=== PATIENT | female | born 1975 | race Caucasian/White ===

== ENCOUNTER 2019-08-04 11:05 | Emergency (ER) | payer OTHER, SELFPAY ==
[2019-08-04 11:08] VITALS: BP 142/46; PULSE 66; RESP 13; TEMP 36.3; O2SAT 98; BMI 22.8
--- NOTE | 2019-08-04 11:25 | ED_ITS ---
HPI - Wound/Laceration <EFRAÍN Guzman - Last Filed: 08/04/19 14:55> General Chief Complaint: Wound/Laceration Stated Complaint: Cut her Right ring finger Time Seen by Provider: 08/04/19 11:11 Source: patient Mode of arrival: Ambulatory Limitations: no limitations History of Present Illness HPI narrative: The patient is a 44-year-old female nonsmoker presents with a chief complaint of laceration to her right ring finger. She accidentally cut herself on her knife on the palmar surface. She states that she has full range of motion of her right ring finger. She states that she has had lidocaine and numbing medication before with no issues. She states that it happened just prior to arrival she does not know when her last was. She is not worried about chip fracture or retained foreign body. She has not washed out prior to arrival at the emergency department. Related Data Allergies Allergy/AdvReac Type Severity Reaction Status Date / Time No Known Drug Allergies Allergy Verified 08/04/19 11:10 Review of Systems <EFRAÍN Guzman - Last Filed: 08/04/19 14:55> Review of Systems Narrative: GENERAL: Denies chills, fatigue, malaise, fever, sweats. HEENT: Denies sinus pain, ear pain, sore throat, difficulty swallowing, dizziness. RESPIRATORY: Denies dyspnea, cough, wheezing, hemoptysis, sputum. CARDIOVASCULAR: Denies chest pain, palpitations, orthopnea, edema, GASTROINTESTINAL: Denies nausea, vomiting, abdominal pain, diarrhea, constipation, melena. : Denies dysuria, frequency, incontinence, hematuria, urinary retention. MUSCULOSKELETAL: denies weakness, joint pain, or bony pain SKIN: See HPI NEUROLOGIC: Denies weakness, headache, numbness, change in speech, confusion, seizures, incoordination. PSYCHIATRIC: No concerning psychosocial issues. 12 point review of systems is negative except for those stated above Patient History <EFRAÍN Guzman - Last Filed: 08/04/19 14:55> Social History Smoking Status: Unknown if ever smoked Smoking Status: Unknown if ever smoked alcohol intake frequency: holidays/special occasions only Substance Use Type: does not use Exam <VITOR GuzmanBC - Last Filed: 08/04/19 14:55> Narrative Exam Narrative: GENERAL: This is a well-nourished, well-developed patient, no acute distress HEAD: Atraumatic. Normocephalic. No temporal or scalp tenderness. EYES: Pupils equal round and reactive. Extraocular motions intact. No scleral icterus. No injection or drainage. ENT: Nose without bleeding, purulent drainage or septal hematoma. Throat without erythema, tonsillar hypertrophy or exudate. Uvula midline. Airway patent. NECK: Trachea midline. No JVD or lymphadenopathy. Supple, nontender, no meningeal signs. CARDIOVASCULAR: Regular rate and rhyth, RESPIRATORY: No cough. No increased respiratory effort. No accessory muscle use. EXTREMITIES: Full range of motion noted right 4th digit positive right radial pulse. Capillary refill less than 2 seconds right 4th digit BACK: Nontender without deformity or crepitance. No flank tenderness. NEURO: AOx3. SKIN: A 2 cm palmar side laceration on right ring finger, slightly V shaped flap laceration middle phalanx Initial Vital Signs Initial Vital Signs: Vital Signs Temperature 97.4 F L 08/04/19 11:08 Pulse Rate 66 08/04/19 11:08 Respiratory Rate 13 08/04/19 11:08 Blood Pressure 142/46 H 08/04/19 11:08 Pulse Oximetry 98 08/04/19 11:08 <Alfred Maldonado DO - Last Filed: 08/04/19 15:17> Initial Vital Signs Initial Vital Signs: Vital Signs Temperature 97.4 F L 08/04/19 11:08 Pulse Rate 66 08/04/19 11:08 Respiratory Rate 13 08/04/19 11:08 Blood Pressure 142/46 H 08/04/19 11:08 Pulse Oximetry 98 08/04/19 11:08 Procedures <EFRAÍN Guzman - Last Filed: 08/04/19 14:55> Laceration Repair Laceration 1: Site: hand Side (If applicable): right (4th finger) Size (cm): 2 Description: flap Depth: simple, single layer Amount of anesthesia used (mL): 4 Pre-repair: wound explored, irrigated extensively and deep structures intact Skin layer closed with: nylon Size (cm): 5-0 Number of sutures: 4 Technique: simple, interrupted Nerve Block Nerve Block 1: Local Anesthetic: lidocaine 1% and with bicarb Amount of anesthesia used (mL): 4 Side: right Nerve Blocks: digital (4th) Procedure Successful: Yes Patient Tolerated Procedure: Well Complications: none Course <EFRAÍN Guzman - Last Filed: 08/04/19 14:55> Orders Ordered: Discontinued Medications Diphtheria/Tetanus/Acell Pertussis (Adacel) 0.5 ml IM .ONCE ONE Stop: 08/04/19 11:24 Last Admin: 08/04/19 11:29 Dose: 0.5 ml Documented by: SCANAPO Lidocaine/Sodium Bicarbonate (Buffered Lidocaine 10 Ml Syr) 10 ml INJ NOW ONE Stop: 08/04/19 11:24 Last Admin: 08/04/19 11:32 Dose: 10 ml Documented by: SCANAPO Vital Signs Vital signs: Vital Signs - 8 hr 08/04/19 11:08 08/04/19 12:16 Temperature 97.4 F L Pulse Rate 66 56 L Respiratory Rate 13 Blood Pressure 142/46 H 106/71 Pulse Oximetry 98 97 <Alfred Maldonado DO - Last Filed: 08/04/19 15:17> Orders Ordered: Discontinued Medications Diphtheria/Tetanus/Acell Pertussis (Adacel) 0.5 ml IM .ONCE ONE Stop: 08/04/19 11:24 Last Admin: 08/04/19 11:29 Dose: 0.5 ml Documented by: SCANAPO Lidocaine/Sodium Bicarbonate (Buffered Lidocaine 10 Ml Syr) 10 ml INJ NOW ONE Stop: 08/04/19 11:24 Last Admin: 08/04/19 11:32 Dose: 10 ml Documented by: SCANAPO Vital Signs Vital signs: Vital Signs - 8 hr 08/04/19 11:08 08/04/19 12:16 Temperature 97.4 F L Pulse Rate 66 56 L Respiratory Rate 13 Blood Pressure 142/46 H 106/71 Pulse Oximetry 98 97 MDM - Wound/Laceration <EFRAÍN Guzman - Last Filed: 08/04/19 14:55> MDM Narrative Medical decision making narrative: The patient is a 44-year-old female presents with a chief complaint of a laceration to her right ring finger. Her tetanus is updated accordingly as she does not know when her last tetanus was. Patient declines x-ray for chip fracture and retained foreign body. She is able to flex and extend her right ring finger against resistance, which is reassuring for tendon integrity. She is neurovascularly intact throughout her stay in the emergency department. Patient was sutured as per procedural note which she tolerated well. Discussed at length monitoring for signs and symptoms of infection, coming back to the emergency department for any acute concerns such as decreased circulation to the finger, not putting finger in dirty water. Encouraged follow-up for suture removal in 7 days. Patient has no questions or concerns upon discharge and states understanding of return precautions as well as follow-up care Discharge Plan Departure Patient Disposition: Home Clinical Impression: Laceration Discharge Date/Time: 08/04/19 12:16 Instructions: How to Care for a Laceration After Repair, DI for Laceration Repair, DI for Minor Laceration Activity Restrictions/Additional Instructions: Thank you for trusting us with your care today. Today we updated your tetanus and placed 4 sutures in your finger. Please monitor your wound for signs and symptoms of infection such as redness swelling and pus. Follow up if these occur. Please come back to the emergency department for any acute concerns such as decreased circulation to your finger tip. Please follow up for suture removal in approximately 7 days. Please do not submerge your finger into dirty water such as pools, hot tubs and dishwater. This can increase your chance of infection. Referrals: Erica Gonzalez PA-C [Primary Care Provider] - <Alfred Maldonado DO - Last Filed: 08/04/19 15:17> [facility]: Dr Maldonado Co-Sign Statement: I was available for consultation during this patient's emergency department visit. This chart is signed by myself for administrative purposes only. I did not have direct contact with this patient during this visit. They were seen independently by the APC.
[2019-08-04] MEDS: TET,DIPH,PERTUSS(ACELL),VAC/PF 0.5 ML SYRINGE IM (11:29)
[2019-08-04] MEDS: LIDO 1%/SOD BICARB 8.4% (10ML) 10 ML SYRINGE INJ (11:32)
[2019-08-04 12:16] VITALS: BP 106/71; PULSE 56; O2SAT 97
== END 2019-08-04 12:16 | disposition home or self-care (01) ==
PROVIDERS: Emergency Provider Nurse Practitioner Family; PCP Physician Assistant
DX: S61.214A Laceration without foreign body of right ring finger without damage to nail, initial encounter (principal); W26.0XXA Contact with knife, initial encounter; Z23 Encounter for immunization
CPT/HCPCS: 12001; 64450; 90471; 99284; 90715

== ENCOUNTER 2024-02-05 13:15 | Emergency (ER) | payer OTHER, SELFPAY ==
[2024-02-05] VITALS (9 sets, daily range): BP systolic 94–130; BP diastolic 52–83; PULSE 62–72; RESP 16–18; TEMP 36.7–37.4; O2SAT 94–99; BMI 22.1
--- NOTE | 2024-02-05 13:59 | DI.RAD.S_ITS ---
PROCEDURE: XR SACRUM COCCYX MIN 2V INDICATIONS: pain TECHNIQUE: 3 views of the sacrum and coccyx acquired. COMPARISON: None. FINDINGS: Bones: No fractures or dislocations. No suspicious bony lesions. Soft tissues: Visualized bowel gas pattern is normal. No suspicious soft tissue densities. IMPRESSION: No acute osseous abnormality. Dictated by: Jordan Benitez M.D. on 02/05/2024 at 14:24 Approved by: Jordan Benitez M.D. on 02/05/2024 at 14:25
--- NOTE | 2024-02-05 13:59 | DI.RAD.S_ITS ---
PROCEDURE: XR PELVIS 1-2V INDICATIONS: pain TECHNIQUE: 1 view(s) of the pelvis acquired. COMPARISON: None. FINDINGS: Bones: No fractures or dislocations. No suspicious bony lesions. Mild degenerative changes are noted at the bilateral superior acetabular rims. Soft tissues: Visualized bowel gas pattern is normal. No suspicious soft tissue calcifications. IMPRESSION: No acute bony abnormality. Dictated by: Jordan Benitez M.D. on 02/05/2024 at 14:23 Approved by: Jordan Benitez M.D. on 02/05/2024 at 14:24
--- NOTE | 2024-02-05 14:06 | ED.FALL ---
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 He has not complaining of extremity pain abdominal or back pain. She was able to get up and walk back into the school and was able to get to the emergency department in a private vehicle. She describes decreased sensation over the surface of the tailbone and a deep discomfort focusing around her tailbone. There was no bleeding, obvious contusion or bruising at this time Related Data Allergies Allergy/AdvReac Type Severity Reaction Status Date / Time No Known Drug Allergies Allergy Verified 02/05/24 13:28 Review of Systems Review of Systems Narrative: Pertinent positive and negative findings as per HPI Patient History Social History Smoking Status: Unknown if ever smoked Smoking Status: Unknown if ever smoked alcohol intake frequency: holidays/special occasions only Substance Use Type: does not use Exam Initial Vital Signs Initial Vital Signs: Vital Signs Temperature 98.1 F 02/05/24 13:25 Pulse Rate 72 02/05/24 13:25 Respiratory Rate 16 02/05/24 13:25 Blood Pressure 130/83 02/05/24 13:25 Pulse Oximetry 99 02/05/24 13:25 Oxygen Delivery Method Room Air 02/05/24 13:25 General: Healthy appearing, obviously hurting but Able to give a complete and coherent history. Well-nourished well-developed HEENT: Moist mucous membranes, normal sclera with reactive pupils, Spine: No tenderness along the cervical thoracic or lumbar midline spine with palpation. No tenderness around pelvic ring or over ischial tuberosities. Significant tenderness directly over the coccyx Respiratory: Lungs are clear to auscultation, no wheezing no rales no rhonchi. Full and symmetrical air movement Cardiac: Regular rate and rhythm no murmurs no bruits Abdomen: Soft, nontender, good bowel tones, no flank pain Skin: Warm and dry, no rashes Neurologic: Grossly neurologically intact with no obvious asymmetries or abnormalities Extremities: No trauma, well perfused Psych: Cooperative, appropriate insight and affect Course Orders Ordered: ED Orders 02/05/24 13:59 XR pelvis 1-2V Stat XR sacrum coccyx min 2V Stat Discontinued Medications Ibuprofen (Ibuprofen 400 Mg Tablet) 400 mg PO NOW ONE Stop: 02/05/24 13:59 Last Admin: 02/05/24 14:17 Dose: 400 mg Documented By: TEODORA Oxycodone/Acetaminophen (Oxycodone/Acetaminophen 5/325 Tablet) 1 tab PO NOW ONE Stop: 02/05/24 13:59 Last Admin: 02/05/24 14:17 Dose: 1 tab Documented By: RB Vital Signs Vital signs: Vital Signs - 8 hr 02/05/24 13:25 02/05/24 13:28 02/05/24 13:30 Temperature 98.1 F Pulse Rate 72 66 Respiratory Rate 16 Blood Pressure 130/83 124/76 Pulse Oximetry 99 98 Oxygen Delivery Method Room Air 02/05/24 13:30 02/05/24 14:00 02/05/24 14:00 Temperature Pulse Rate 66 63 Respiratory Rate Blood Pressure 121/65 Pulse Oximetry 98 94 Oxygen Delivery Method 02/05/24 14:15 02/05/24 14:15 02/05/24 14:30 Temperature Pulse Rate 63 Respiratory Rate Blood Pressure 121/68 107/64 Pulse Oximetry 98 Oxygen Delivery Method 02/05/24 14:30 02/05/24 15:00 02/05/24 15:00 Temperature Pulse Rate 62 70 Respiratory Rate Blood Pressure 113/67 Pulse Oximetry 97 96 Oxygen Delivery Method 02/05/24 15:30 02/05/24 15:30 Temperature Pulse Rate 67 Respiratory Rate Blood Pressure 94/52 L Pulse Oximetry 94 Oxygen Delivery Method MDM - Fall MDM Narrative Medical decision making narrative: CC: Fall directly on [employer], this was at work and is an L & I claim Data collected from: patient Differential considered: Coccyx fracture, sacral fracture, pelvic ring fracture, compression fracture Exam documented above, pertinent findings include: Patient is point tender exactly over her coccyx and remainder of exam is reassuringly normal Imaging studies independently reviewed: X-rays of the pelvis showed no acute abnormalities. X-rays of the sacrum and coccyx are reassuring Treatments: Ibuprofen and Percocet Discussion: Patient is re-evaluated. Much more comfortable after pain medication. Reviewed findings, anticipated course of recovery which includes increasing pain for the 1st 48 hours. 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 We discussed use of ibuprofen, Tylenol, Percocet. Encouraged increased activity as tolerated. At this point there was no indication for additional blood work or imaging and she is safe for discharge Discharge Plan Departure Patient Disposition: Home Clinical Impression: Fall Qualifiers: Encounter type: initial encounter Qualified Code(s): W19.XXXA - Unspecified fall, initial encounter Coccygeal contusion Qualifiers: Encounter type: initial encounter Qualified Code(s): S30.0XXA - Contusion of lower back and pelvis, initial encounter Instructions: DI for Coccyx Fracture Activity Restrictions/Additional Instructions: Thank you for coming in today You do NOT have a broken tailbone or pelvic ring. You are going to have increasing pain for the next 48 hours. I suspect your also going to have some pain up your spine just for muscle spasm. Making sure that you are moving is going to be helpful. Ice and heat, whichever feels better can be helpful as well. Using a ?donut? or soft pillow is going to be helpful when your sitting for the next few days Using 400 mg of ibuprofen (2 nxnc-aff-helgrab pills) and 1 Tylenol every 6 hours can be very helpful in controlling pain. For severe pain you can use 400 mg of ibuprofen and 1 Percocet. If you do choose to use the Percocet, please remember it is a narcotic and will cause constipation. Take it with a stool softener I have filled out your L and I paperwork, I have recommended that you return to full-time unrestricted work on February 09, Thursday If you find that you are getting worse or develop any new symptoms, please feel free to return to the emergency department for further evaluation. Referrals: Erica Gonzalez PA-C [Primary Care Provider] - Stand Alone Forms: Patient Portal/API/Survey, Work Release Note
[2024-02-05] MEDS: IBUPROFEN 400 MG TABLET PO (14:17)
[2024-02-05] MEDS: OXYCODONE/ACETAMINOPHEN 5/325 TABLET 1 TAB PO (14:17)
== END 2024-02-05 16:50 | disposition home or self-care (01) ==
PROVIDERS: Emergency Provider Emergency Medicine; PCP Physician Assistant
DX: S30.0XXA Contusion of lower back and pelvis, initial encounter (principal); W01.0XXA Fall on same level from slipping, tripping and stumbling without subsequent striking against object, initial encounter; Y92.219 Unspecified school as the place of occurrence of the external cause; Y99.0 Civilian activity done for income or pay
CPT/HCPCS: 72170; 72220; 99283